=== PATIENT | female | born 1945 | race Caucasian/White ===

== ENCOUNTER 2017-08-08 08:01 | Emergency (ER) | payer MEDICARE, OTHER ==
[2017-08-08] MEDS ORDERED: diphenhydrAMINE HCl 25 MG CAP ONE (08:19)
== END 2017-08-08 08:30 | disposition home or self-care (01) ==
LOC: SCSER 08:01
DX: R19.7 Diarrhea, unspecified (principal); R20.2 Paresthesia of skin; T37.8X5A Adverse effect of other specified systemic anti-infectives and antiparasitics, initial encounter; F41.9 Anxiety disorder, unspecified; K21.9 Gastro-esophageal reflux disease without esophagitis; E03.9 Hypothyroidism, unspecified
CPT/HCPCS: 99283

== ENCOUNTER 2018-12-29 08:57 | Emergency (ER) | payer MEDICARE ==
[2018-12-29] MEDS ORDERED: CEFAZOLIN 1 GM VIAL ONE (09:51)
[2018-12-29] MEDS ORDERED: Sodium Chloride 0.9% 100 ML ONE (09:51)
--- NOTE | 2018-12-29 10:15 | RAD ---
3 VIEWS LEFT WRIST: Date: 12/29/18 COMPARISON: None. HISTORY: Redness in posterior hand and wrist for 2 days. Joint pain. FINDINGS: Three views of the left wrist show no evidence of acute fracture or dislocation. Moderate diffuse sof t tissue swelling is seen. Degenerative changes are seen in the first CM joint and between the distal carpal row and proximal carpal row along the radial aspect of the wrist. IMPRESSION: Degenerative changes of left wrist without acute osseous abnormality. POS: SVITLANA
[2018-12-29 10:52] LABS: Anion Gap 14 mmol/L (10-20); BUN (Urea Nitrogen) 13 mg/dL (9.8-20.1); Calc. Creatinine Clearance 0 mL/min (70-130); Carbon Dioxide 21 mmol/L (23-31); Chloride 110 mmol/L (98-107); Estimated GFR-MDRD 74; Glucose 105 mg/dL (83-110); Potassium 4.1 mmol/L (3.5-5.1); Sodium 141 mmol/L (136-145)
[2018-12-29 10:57] LABS: Band 3 % (5-11); Hemoglobin 13.9 g/dL (12.0-16.0); Lymphocytes 7 % (21-51); MDiff Complete? YES; Mean Corpuscular Hemoglobin 28.8 pg (27.0-31.0); Mean Platelet Volume 7.3 fL (7.4-10.4); Monocytes 5 % (0-10); Neutrophil 85 % (42-75); Platelet Count 293 thou/uL (130-400); Platelet Morphology Comment Appears Adequate; RBC Distribution Width 12.8 % (11.5-14.5); RBC Morphology Normal; Red Blood Cell (RBC) Count 4.82 mill/uL (4.20-5.40); White Blood Cell (WBC) Count 13.3 thou/uL (4.8-10.8)
[2018-12-29] MEDS ORDERED: Clindamycin/D5W 900 mg/50 ml Premix Bag ONE (11:27)
[2018-12-29] MEDS ORDERED: Acetaminophen 500 MG TAB ONE (11:39)
== END 2018-12-29 12:30 | disposition home or self-care (01) ==
LOC: SCSER 08:57
DX: L03.114 Cellulitis of left upper limb (principal); E03.9 Hypothyroidism, unspecified; K21.9 Gastro-esophageal reflux disease without esophagitis; Z79.899 Other long term (current) drug therapy
CPT/HCPCS: 36415; 80048; 85025; 87040; J0690; J3490; J7050

== ENCOUNTER 2018-12-30 11:27 | Inpatient (IN) | payer MEDICARE ==
[2018-12-30] MEDS: Vancomycin HCl 1 GM in Premix Bag 1 BAG IVPB SCH (13:28)
[2018-12-30 13:30] LABS: #Basophils 0.1 thou/uL (0.0-0.2); #Eosinphils 0.1 thou/uL (0.0-0.7); #Lymphocytes 1.8 thou/uL (1.20-3.40); #Monocytes 0.9 thou/uL (0.11-0.59); #Neutrophils 9.4 thou/uL (1.40-6.50); %Basophils 0.6 % (0.0-1.0); %Lymphocytes 14.5 % (21.0-51.0); %Monocytes 7.3 % (0.0-10.0); %Neutrophils 76.7 % (42.0-75.0); Hemoglobin 14.8 g/dL (12.0-16.0); Mean Corpuscular HGB CONC 30.3 g/dL (32.0-36.0); Mean Corpuscular Hemoglobin 28.5 pg (27.0-31.0); Mean Platelet Volume 8.3 fL (7.4-10.4); Platelet Count 277 thou/uL (130-400); RBC Distribution Width 12.4 % (11.5-14.5); Red Blood Cell (RBC) Count 5.19 mill/uL (4.20-5.40); White Blood Cell (WBC) Count 12.2 thou/uL (4.8-10.8)
[2018-12-30] MEDS: traMADol HCl 50 MG TAB PO PRN ×2 (14:39→21:48)
[2018-12-30] MEDS: cefTRIAXone\\ROCEPHIN 1 GM in Sodium Chloride 0.9% 100 ML IVPB SCH (15:06)
[2018-12-30] MEDS: clonazePAM 0.5 MG TAB PO SCH (20:33)
[2018-12-31] MEDS: Vancomycin HCl 1 GM in Premix Bag 1 BAG IVPB SCH ×2 (01:26→13:27)
[2018-12-31] MEDS: traMADol HCl 50 MG TAB PO PRN ×3 (08:25→22:12)
[2018-12-31] MEDS: Levothyroxine Sodium 100 MCG TAB PO SCH (08:25)
[2018-12-31] MEDS: clonazePAM 0.5 MG TAB PO SCH ×2 (08:28→21:18)
[2018-12-31] MEDS: cefTRIAXone\\ROCEPHIN 1 GM in Sodium Chloride 0.9% 100 ML IVPB SCH (12:20)
[2019-01-01 00:49] LABS: Vancomycin, Trough 15.9 ug/mL
[2019-01-01] MEDS: Vancomycin HCl 1 GM in Premix Bag 1 BAG IVPB SCH ×2 (01:06→13:42)
[2019-01-01] MEDS: Levothyroxine Sodium 100 MCG TAB PO SCH (08:24)
[2019-01-01] MEDS: clonazePAM 0.5 MG TAB PO SCH ×2 (08:24→20:19)
[2019-01-01] MEDS: traMADol HCl 50 MG TAB PO PRN ×2 (10:23→20:28)
[2019-01-01] MEDS: cefTRIAXone\\ROCEPHIN 1 GM in Sodium Chloride 0.9% 100 ML IVPB SCH (12:19)
[2019-01-02] MEDS: Vancomycin HCl 1 GM in Premix Bag 1 BAG IVPB SCH ×2 (02:00→15:36)
[2019-01-02] MEDS: Levothyroxine Sodium 100 MCG TAB PO SCH (05:37)
[2019-01-02] MEDS: clonazePAM 0.5 MG TAB PO SCH ×2 (08:17→21:02)
[2019-01-02 08:45] LABS: #Basophils 0.1 thou/uL (0.0-0.2); #Eosinphils 0.3 thou/uL (0.0-0.7); #Lymphocytes 1.8 thou/uL (1.20-3.40); #Monocytes 0.6 thou/uL (0.11-0.59); #Neutrophils 5.7 thou/uL (1.40-6.50); %Monocytes 7.2 % (0.0-10.0); %Neutrophils 67.7 % (42.0-75.0); Hemoglobin 13.3 g/dL (12.0-16.0); Mean Corpuscular HGB CONC 31.4 g/dL (32.0-36.0); Mean Corpuscular Hemoglobin 29.9 pg (27.0-31.0); Mean Corpuscular Volume 95.1 fL (78.0-98.0); Mean Platelet Volume 7.5 fL (7.4-10.4); Platelet Count 293 thou/uL (130-400); RBC Distribution Width 12.1 % (11.5-14.5); Red Blood Cell (RBC) Count 4.45 mill/uL (4.20-5.40); White Blood Cell (WBC) Count 8.4 thou/uL (4.8-10.8)
[2019-01-02] MEDS: cefTRIAXone\\ROCEPHIN 1 GM in Sodium Chloride 0.9% 100 ML IVPB SCH (13:42)
[2019-01-03] MEDS: Vancomycin HCl 1 GM in Premix Bag 1 BAG IVPB SCH ×2 (00:47→12:56)
--- NOTE | 2019-01-03 01:55 | CON ---
DATE OF CONSULTATION: REASON FOR CONSULTATION: Left hand inflammatory changes with pain. HISTORY OF PRESENT ILLNESS: A 73-year-old who has a history of bronchitis and hypothyroidism, and was admitted with pain to left hand, which started at the 1st metacarpophalangeal joint and was associated with numbness of the second digit and then have subsequently in the 1st, 2nd, 3rd, and 4th digits, and she had some pain prior to these symptoms. The pain had been localized to the left neck and shoulder and then forearm of left side. This was not associated with fever. She denied any other areas of arthropathy. No chills. No headaches, visual symptoms, sore throat, odynophagia, or dysphagia. No dyspnea or cough. No abdominal pain or diarrhea. No genitourinary symptoms. No neurological symptoms. PAST MEDICAL HISTORY: Cholecystectomy, shoulder surgery, and hypothyroidism. SOCIAL HISTORY: Never smoker. ALLERGIES: 1. ALEVE. 2. AMOXICILLIN. 3. AZITHROMYCIN. 4. CELEBREX. THERE IS A LONG LIST OF OTHER MEDICINES INCLUDING, 1. CONTRAST. 2. NSAIDS. 3. MACROBID. 4. PENICILLIN. 5. SULFA DRUGS. 6. VIOXX. FAMILY HISTORY: Noncontributory. CURRENT MEDICATIONS: Include, 1. Ceftriaxone. 2. Vancomycin. 3. Clonazepam. 4. Levothyroxine. 5. Tramadol. PHYSICAL EXAMINATION: VITAL SIGNS: She has been afebrile since admission, T-max 99.5, blood pressure 127/76, pulse 76. SKIN: Not remarkable. NECK: No lymphadenopathy. HEENT: Ocular movements conjugate. Oral cavity normal. NECK: Supple. LUNGS: Symmetric. Clear breath sounds. HEART: S1 and S2. Regular rate without murmurs. HAND: Left shoulder is not tender to palpation or range of motion. ABDOMEN: Not distended or tender. No ascites or organomegaly. : No bladder distention. EXTREMITIES: She has tenderness on range of motion of the left wrist and left 1st MCP. There is slight erythema, very mild noticeable at this time in the dorsal aspect. NEUROLOGIC: Nonfocal including cognitive function. LABORATORY DATA: White cell count 12,000, now is 8.4, hemoglobin 14, platelets 293. Chemistry with CRP 4.22. Previous chemistry with creatinine 0.77. Albumin was 4.7 in 2018. Calcium was 10.0. Reports that there is a wrist x-ray which shows degenerative changes in left wrist, but no acute osseous abnormality. ASSESSMENT: Acute onset of inflammatory arthropathy, left wrist first metacarpophalangeal joint with findings suggestive of median nerve compression with carpal tunnel syndrome like symptoms. DISCUSSION: The differential diagnosis includes infectious versus noninfectious inflammatory conditions that can cause wrist arthritis with compression of the median nerve. We will proceed with MRI of the left wrist and hand. Check uric acid. May need arthrocentesis and/or auto-immune serologies. Job ID: [id number] [facility]
[2019-01-03] MEDS: clonazePAM 0.5 MG TAB PO SCH ×2 (07:58→20:19)
[2019-01-03] MEDS: Levothyroxine Sodium 100 MCG TAB PO SCH (07:58)
[2019-01-03] MEDS: cefTRIAXone\\ROCEPHIN 1 GM in Sodium Chloride 0.9% 100 ML IVPB SCH (12:52)
[2019-01-03] MEDS: traMADol HCl 50 MG TAB PO PRN (20:20)
[2019-01-04] MEDS: Vancomycin HCl 1 GM in Premix Bag 1 BAG IVPB SCH ×2 (02:00→14:13)
[2019-01-04] MEDS: Levothyroxine Sodium 100 MCG TAB PO SCH (08:20)
[2019-01-04] MEDS: clonazePAM 0.5 MG TAB PO SCH ×2 (08:20→20:33)
[2019-01-04] MEDS ORDERED: Diazepam 5 MG TAB PO PRN (08:34)
[2019-01-04] MEDS: cefTRIAXone\\ROCEPHIN 1 GM in Sodium Chloride 0.9% 100 ML IVPB SCH (12:24)
--- NOTE | 2019-01-04 13:19 | MRI ---
MRI LEFT WRIST WITHOUT CONTRAST: Date: 01/04/19 HISTORY: Pain, redness and swelling. COMPARISON: Radiograph dated 12/29/18. FINDINGS: Bones: There is no acute fracture or malalignment. There is mild edema throughout the proximal and distal ca rpal row. No fracture. No malalignment. Moderate degenerative disease of the thumb carpometacarpal joint with subcortical cyst formation. Soft Tissues: There is a large radiocarpal joint effusion. Large effusion distal radioulnar joint. There is mild sy novitis of the wrist joint. Muscles: There is edema throughout all the intrinsic musculature of the wrist and portions of the hand incompl etely evaluated. Evaluation for fluid collection is limited without intravenous contrast. Tendons: There is tenosynovitis of the flexor and extensor tendons, as well as the abductor and adductor tendo ns. There is central perforation of the triangular fibrocartilage. IMPRESSION: Extensive soft tissue swelling, tenosynovial fluid, muscle edema, and carpal bone edema. Findings can be seen with reflex sympathetic dystrophy. Infection is felt less likely. Inflammatory arthropathy i s also a possibility, although given the lack of significant erosions, rheumatoid arthritis would be felt less likely. POS: H
[2019-01-04] MEDS: traMADol HCl 50 MG TAB PO PRN (20:33)
[2019-01-05 07:15] LABS: #Basophils 0.1 thou/uL (0.0-0.2); #Eosinphils 0.2 thou/uL (0.0-0.7); #Lymphocytes 3.1 thou/uL (1.20-3.40); #Monocytes 0.7 thou/uL (0.11-0.59); #Neutrophils 6.1 thou/uL (1.40-6.50); %Basophils 0.9 % (0.0-1.0); %Eosinophils 2.4 % (0.0-10.0); %Lymphocytes 30.6 % (21.0-51.0); %Monocytes 7.1 % (0.0-10.0); Hemoglobin 13.8 g/dL (12.0-16.0); Mean Corpuscular HGB CONC 31.5 g/dL (32.0-36.0); Mean Corpuscular Hemoglobin 29.3 pg (27.0-31.0); Mean Corpuscular Volume 93.1 fL (78.0-98.0); Mean Platelet Volume 7.8 fL (7.4-10.4); Platelet Count 361 thou/uL (130-400); RBC Distribution Width 12.2 % (11.5-14.5); Red Blood Cell (RBC) Count 4.72 mill/uL (4.20-5.40); White Blood Cell (WBC) Count 10.3 thou/uL (4.8-10.8)
[2019-01-05 07:33] LABS: CRP (Inflammatory) 2.28 mg/dL (= or < 0.5); Uric Acid 3.9 mg/dL (2.6-6.0)
--- NOTE | 2019-01-05 08:56 | PRG ---
DATE OF SERVICE: 01/05/2019 SUBJECTIVE: The patient about the same. The hand still is with redness and limitation of range of motion and pain. No respiratory symptoms or abdominal pain. No diarrhea. OBJECTIVE: VITAL SIGNS: She has been afebrile. LUNGS: Clear. HEART: S1 and S2, regular rate. EXTREMITIES: Left hand still with erythema and swelling. Limitation of range of motion at dorsal aspect. LABORATORY DATA: White cell count 10.3. CRP 2.28. Uric acid is 3.9. MRI showed tenosynovitis of the hand and wrist effusion. ASSESSMENT AND DISCUSSION: Acute onset of inflammatory arthropathy of left wrist with tenosynovitis. The differential diagnosis is infectious versus noninfectious arthritis of the left wrist. Recommend arthrocentesis and submit fluid for testing for crystals, cultures, and cell counts. Job ID: [id number]
[2019-01-05] MEDS: Levothyroxine Sodium 100 MCG TAB PO SCH (09:13)
[2019-01-05] MEDS: clonazePAM 0.5 MG TAB PO SCH (09:13)
[2019-01-05 09:33] VITALS: TEMP 98.4
[2019-01-05] MEDS: traMADol HCl 50 MG TAB PO PRN (12:38)
[2019-01-05 12:47] VITALS: BP 128/71
== END 2019-01-05 14:37 | disposition home or self-care (01) | DRG 558 ==
LOC: SURG B 11:27
PROVIDERS: ADMIT Orthopaedic Surgery; ATTEND Orthopaedic Surgery
DX: M65.9 Synovitis and tenosynovitis, unspecified (principal)
CPT/HCPCS: 36415; 80048; 80202; 84550; 85025; 85652; 86140; 87040; 96365; 96367; J0690; J0696; J3370; J3490; J7050